=== PATIENT | female | born 1980 | race Caucasian/White ===

== ENCOUNTER 2016-11-23 21:19 | Emergency (ER) | payer OTHER | END 2016-11-24 04:10 | disposition home or self-care (01) | LOC: ER1 21:19 | DX: S39.012A Strain of muscle, fascia and tendon of lower back, initial encounter (principal); F17.200 Nicotine dependence, unspecified, uncomplicated; X58.XXXA Exposure to other specified factors, initial encounter | CPT/HCPCS: 96372; 99283; J1885 ==

== ENCOUNTER → 2020-11-30 | Outpatient (CLI) | payer OTHER ==
[~2020-11-30] MED LIST: NAPROSYN500 MG PO
[2020-11-30 15:20] LABS: HEMOGLOBIN 14.6 gm/dl (12.3-15.3); RED BLOOD COUNT 4.59 M/UL (4.00-5.10); WHITE BLOOD COUNT 5.8 K/UL (4.5-11.0)
[2020-11-30 15:45] LABS: BUN/CREATININE RATIO 15 (0-10)
== END ==
LOC: LAB 14:48
PROVIDERS: Emergency Medicine
DX: J20.9 Acute bronchitis, unspecified (principal); R06.02 Shortness of breath; U07.1 COVID-19; R07.9 Chest pain, unspecified; R94.31 Abnormal electrocardiogram [ECG] [EKG]
CPT/HCPCS: 36415; 71046; 80053; 83880; 85025; 85379; 93005

== ENCOUNTER 2020-12-01 16:25 | Emergency (ER) | payer OTHER ==
[2020-12-01 17:43] LABS: HEMOGLOBIN 14.7 gm/dl (12.3-15.3); RED BLOOD COUNT 4.56 M/UL (4.00-5.10)
[2020-12-01 18:19] LABS: BUN/CREATININE RATIO 18 (0-10)
== END 2020-12-01 19:08 | disposition home or self-care (01) ==
LOC: ER1 16:25
PROVIDERS: Physician Assistant
DX: R79.1 Abnormal coagulation profile (principal); R41.0 Disorientation, unspecified
CPT/HCPCS: 80053; 82550; 82553; 83874; 84484; 85025; 85379; 93005; 99284; J7030; Q9967